=== PATIENT | female | born 1980 | race Caucasian/White ===

== ENCOUNTER 2017-12-18 01:29 | Emergency (ER) | payer BC ==
[~2017-12-18] VITALS: Ht 172.7 cm; Wt 86.1 kg
[2017-12-18] MEDS ORDERED: PREDNISONE20 MG PO (05:23)
[2017-12-18] MEDS ORDERED: EPIPEN ADU0.3 MG/0.3 IM (05:23)
[2017-12-18 06:00] VITALS: BP 104/66
== END 2017-12-18 06:04 | disposition home or self-care (01) ==
LOC: EME 01:29
DX: T78.3XXA Angioneurotic edema, initial encounter (principal); Z87.891 Personal history of nicotine dependence
CPT/HCPCS: 99281; 99285; J1200; J2930